=== PATIENT | male | born 1980 | race Caucasian/White ===

== ENCOUNTER 2016-10-07 08:20 | Emergency (ER) | payer OTHER ==
[2016-10-07 10:22] LABS: URINE BILIRUBIN NEGATIVE (NEGATIVE); URINE BLOOD 3+ (NEGATIVE); URINE GLUCOSE (UA) NORMAL (NORMAL); URINE KETONE NEGATIVE (NEGATIVE); URINE LEUKOCYTE ESTERASE NEGATIVE (NEGATIVE); URINE NITRATE NEGATIVE (NEGATIVE); URINE PROTEIN NEGATIVE (NEGATIVE); UROBILINOGEN NORMAL mg/dL (<1.0)
[2016-10-07 10:22] LABS: BASO # 0.1 10_X3_uL (0.0-0.1); BASO % 0.7 % (0.2-1.2); EOS # 0.1 10_X3_uL (0.0-0.5); EOS % 1.9 % (0.8-7.0); GRAN # 4.4 10_X3_uL (1.8-5.4); GRAN % 58.4 % (34.0-67.9); HEMATOCRIT 40.4 % (40-51); LYMPH # 2.4 10_X3_uL (1.3-3.6); LYMPH % 31.9 % (21.8-53.1); MEAN CORPUSCULAR HEMOGLOBIN 29.7 pg (27.0-33.0); MEAN CORPUSCULAR HGB CONC 34.7 g/dL (32.0-36.0); MEAN CORPUSCULAR VOLUME 85.6 fL (79-92); MEAN PLATELET VOLUME 10.2 fl (7.5-11.5); MONO # 0.5 10_X3_uL (0.3-0.8); MONO % 7.1 % (5.3-12.2); PLATELET COUNT 263 x10_3/uL (163-337); RED BLOOD COUNT 4.72 x10_6/uL (4.6-6.1); RED CELL DISTRIBUTION WIDTH 13.2 % (11.6-14.4); WHITE BLOOD COUNT 7.5 x10_3/uL (4.2-9.1)
[2016-10-07 10:26] LABS: ALBUMIN 4.6 gm/dL (3.4-5.0); ALKALINE PHOSPHATASE 70 U/L (50-136); ALT/SGPT 17 U/L (7.53-40.17); AST/SGOT 19 U/L (6.66-35.34); BILIRUBIN,TOTAL 0.34 mg/dL (0.0-1.0); CALCIUM 9.2 mg/dL (8.7-10.7); CARBON DIOXIDE 28 mmol/L (21-32); CREATININE 0.8 mg/dL (0.6-1.3); GLUCOSE,RANDOM 92 mg/dL (70-99); POTASSIUM 4.2 mmol/L (3.5-5.1); SODIUM 141 mmol/L (136-145); TOTAL PROTEIN 7.1 gm/dL (6.4-8.2)
[2016-10-07 10:28] LABS: BLOOD UREA NITROGEN 7 mg/dL (7-18)
[2016-10-07 10:44] LABS: URINE WBC RARE /[HPF] (0-3)
== END 2016-10-07 11:36 | disposition home or self-care (01) ==
LOC: ER 08:20
PROVIDERS: Emergency Medicine
DX: R10.31 Right lower quadrant pain (principal); R11.0 Nausea; G89.29 Other chronic pain; M54.9 Dorsalgia, unspecified; I10 Essential (primary) hypertension; F17.220 Nicotine dependence, chewing tobacco, uncomplicated; Z79.899 Other long term (current) drug therapy; Z79.891 Long term (current) use of opiate analgesic
CPT/HCPCS: 36415; 80053; 81001; 85025; 96374; 99070; 99284-25; J7040; Q9967

== ENCOUNTER 2016-10-26 10:31 | Emergency (ER) | payer OTHER | END 2016-10-26 14:20 | disposition home or self-care (01) | LOC: ER 10:31 | DX: N20.1 Calculus of ureter (principal); R10.9 Unspecified abdominal pain; R11.2 Nausea with vomiting, unspecified; I10 Essential (primary) hypertension; Z90.49 Acquired absence of other specified parts of digestive tract; Z79.899 Other long term (current) drug therapy ==

== ENCOUNTER 2016-11-08 12:00 | Emergency (ER) | payer OTHER ==
[2016-11-08 13:55] LABS: URINE BILIRUBIN NEGATIVE (NEGATIVE); URINE BLOOD 3+ (NEGATIVE); URINE GLUCOSE (UA) NORMAL (NORMAL); URINE KETONE TRACE (NEGATIVE); URINE LEUKOCYTE ESTERASE TRACE (NEGATIVE); URINE NITRATE POSITIVE (NEGATIVE); URINE PROTEIN TRACE (NEGATIVE); UROBILINOGEN NORMAL mg/dL (<1.0)
[2016-11-08 14:08] LABS: URINE BACTERIA FEW (NONE SEEN); URINE MUCUS TRACE; URINE SQUAMOUS EPITHELIAL CELL 0-10 /[HPF] (NONE SEEN)
== END 2016-11-08 14:10 | disposition home or self-care (01) ==
LOC: ER 12:00
PROVIDERS: General Practice
DX: N21.1 Calculus in urethra (principal); N36.8 Other specified disorders of urethra; R10.9 Unspecified abdominal pain; N39.0 Urinary tract infection, site not specified; I10 Essential (primary) hypertension; M54.9 Dorsalgia, unspecified; G89.29 Other chronic pain; F17.220 Nicotine dependence, chewing tobacco, uncomplicated; Z79.899 Other long term (current) drug therapy
CPT/HCPCS: 81001; 96372; 99284-25